=== PATIENT | female | born 1965 | race Caucasian/White ===

== ENCOUNTER 2024-04-09 10:02 | Outpatient (OUT) | payer OTHER, SELFPAY ==
--- NOTE | 2024-04-09 10:07 | MR_ITS ---
The [address] [address] Patient Name: SHAWANDA BOYD MRN: [id number] date: 1965 Sex: F Assigned Patient Location: [facility] Current Patient Location: Accession/Order Number: [id number] Exam Date: 04/09/2024 10:39 Report Date: 04/10/2024 09:31 At the request of: INESSA CHILDRESS Procedure: MR cervical spine wo con MR cervical spine wo con, 04/09/2024 10:39 AM EDT INDICATION: Chronic Neck Pain, Degenerative Arthritis Cervical Spine COMPARISON: There is no appropriate prior study for comparison. TECHNIQUE: Multiplanar, multisequential MRI images of cervical spine were obtained without contrast. FINDINGS: The sensitivity of the study has been decreased due to motion artifact. There is normal physiologic cervical lordosis. The vertebral heights are relatively preserved. The cervicomedullary junction is unremarkable. No definite signal abnormality within the spinal cord is noted. There are mild disc osteophyte complex associated with uncovertebral joint arthrosis from C3 to T1. At the level of C2-C3, there is mild bilateral neuroforaminal narrowing and no canal stenosis. At the level of C3-C4, there is mild right neuroforaminal narrowing and no canal stenosis. At the level of C4-C5, there is moderate bilateral neuroforaminal narrowing and mild canal stenosis. At the level of C5-C6, there is moderate bilateral neuroforaminal narrowing and mild canal stenosis. At the level of C6-C7, there is superimposed disc bulge with mild to moderate bilateral neuroforaminal narrowing and mild to moderate canal stenosis. Level of C7-T1 is unremarkable. No definite muscular or ligamentous injury is noted. MR/MR cervical spine wo con IMPRESSION: Limited study due to motion artifact. Mild degenerative changes of the cervical spine in particular at C4-C5, C5-C6 and C6-C7. Electronically authenticated by: FAISAL ROBERSON Date: 04/10/2024 09:31
--- NOTE | 2024-04-09 10:25 | XR_ITS ---
The [address] [address] Patient Name: SHAWANDA BOYD MRN: [id number] date: 1965 Sex: F Assigned Patient Location: [facility] Current Patient Location: [facility] Accession/Order Number: [id number] Exam Date: 04/09/2024 10:28 Report Date: 04/10/2024 12:07 At the request of: INESSA CHILDRESS Procedure: XR hand RT min 3V PROCEDURE: XR hand RT min 3V HISTORY: Right Hand Pain M79.641 ; no known injury COMPARISON: None. FINDINGS: BONES:Prior resection of the trapezium bone at base of thumb. Prior fusion of the distal interphalangeal joint of the second third digits via a longitudinally placed lag screw. Moderate-marked joint space narrowing of the interphalangeal joints of the fourth and 5th digits. SOFT TISSUES:No visible soft tissue swelling. EFFUSION:None visible. OTHER: Negative. XR/XR hand RT min 3V IMPRESSION: 1. Prior surgical changes and multifocal mild-moderate degenerative joint disease. 2. No acute abnormality or specific findings to account for patient's symptoms. Electronically authenticated by: BELÉN BENNETT Date: 04/10/2024 12:07
== END 2024-04-09 10:03 | disposition home or self-care (01) ==
LOC: RAD 10:03
PROVIDERS: PCP Nurse Practitioner; Visit Provider Nurse Practitioner
DX: M47.22 Other spondylosis with radiculopathy, cervical region (principal); M79.641 Pain in right hand; M47.812 Spondylosis without myelopathy or radiculopathy, cervical region; M19.041 Primary osteoarthritis, right hand
CPT/HCPCS: 72141; 73130